=== PATIENT | male | born 1975 | race Caucasian/White ===

== ENCOUNTER 2024-05-13 23:44 | Emergency (ER) | payer BC, SELFPAY ==
[2024-05-13 23:54] VITALS: BP 115/81
[2024-05-14 00:33] LABS: COVID-19 Antigen Negative (Negative)
--- NOTE | 2024-05-14 02:02 | ED.GENMED ---
History of Present Illness
<SAURAV Rodarte - Last Filed: 05/14/24 06:28>
General
Chief Complaint: Throat Problem
Source: patient
Time Seen by Provider: 05/14/24 01:55
Nursing documentation reviewed up to this point in time: agreed with
History of Present Illness
History of Present Illness:
49 year old male c/o sore throat, rhinorrhea, and BL ear fullness since 05/10. Pt notes that he attended [facility]/07 which he believes is where he contracted his sx. He currently reports 8/10 throat pain that is worsened by lying supine and
with swallowing. He adds that the pain is worse at night. He has been taking Advil 400mg q 4-6 hr which provides moderate pain relief. Pt also endorses a sensation of pressure in his ears BL, as well as clear rhinorrhea. He denies fever, N/V, cough,
SOB, CP, difficulty speaking, and sinus pain. Rapid strep and COVID-19 swabs negative.
Past History
<SAURAV Rodarte - Last Filed: 05/14/24 06:28>
Past History
ED Past Medical History: None
ED Past Surgical History: None
Social History
Tobacco: Non-smoker
Alcohol: None
Drug: None
Living: with family
Review of Systems
<SAURAV Rodarte - Last Filed: 05/14/24 06:28>
Review of Systems
Allergies reviewed?: Yes
Constitutional: Reports no symptoms
EENT: Reports sore throat and runny nose
Respiratory: Reports no symptoms
Cardiac: Reports no symptoms
ABD/GI: Reports no symptoms
: Reports no symptoms
Musculoskeletal: Reports no symptoms
Skin: Reports no symptoms
Neurological: Reports no symptoms
Endocrine: Reports no symptoms
Hematologic/Lymphatic: Reports no symptoms
Psychiatric: Reports no symptoms
Phy Exam
<SAURAV Rodarte - Last Filed: 05/14/24 06:28>
General Physical Exam
General Presentation: well appearing
General age: appears stated age
General Skin: warm
General Habitus: normal
General Mental: alert
General Hydration: appears well hydrated
ENT Exam
ENT Exam: EOMI, TM's normal, pharyngeal erythema and swallowing well
Additional ENT: moderate post nasal drip
Cardiovascular Exam
Cardiovascular Exam: regular rate/rhythm and no edema
Pulmonary Exam
Pulmonary Exam: lungs clear, no respiratory distress, no crackles, no stridor and no wheezing
Skin Exam
Skin Exam: normal color and warm/dry
Course
<SAURAV Rodarte - Last Filed: 05/14/24 06:28>
Orders/Labs/Results
Orders:
Orders
05/13/24 23:57
COVID-19 Antigen Urgent
Source: Nasal Swab
Rapid Strep Group A Urgent
ML Source: Throat/Pharynx
Specimen Description:
Date Specimen was Collected: 05/13/24
Time Specimen was Collected: 23:57
Vital Signs
Initial and Last Documented VS:
Initial Vital Signs
Temp Pulse Resp BP Pulse Ox
98.3 F 83 14 115/81 97
05/13/24 23:54 05/13/24 23:54 05/13/24 23:54 05/13/24 23:54 05/13/24 23:54
Last Documented Vital Signs
Temp Pulse Resp BP Pulse Ox
98.3 F 83 14 115/81 97
05/13/24 23:54 05/13/24 23:54 05/13/24 23:54 05/13/24 23:54 05/13/24 23:54
<Alis Dunne DO - Last Filed: 05/14/24 02:28>
Orders/Labs/Results
Orders:
Orders
05/13/24 23:57
COVID-19 Antigen Urgent
Source: Nasal Swab
Rapid Strep Group A Urgent
ML Source: Throat/Pharynx
Specimen Description:
Date Specimen was Collected: 05/13/24
Time Specimen was Collected: 23:57
Vital Signs
Initial and Last Documented VS:
Initial Vital Signs
Temp Pulse Resp BP Pulse Ox
98.3 F 83 14 115/81 97
05/13/24 23:54 05/13/24 23:54 05/13/24 23:54 05/13/24 23:54 05/13/24 23:54
Last Documented Vital Signs
Temp Pulse Resp BP Pulse Ox
98.3 F 83 14 115/81 97
05/13/24 23:54 05/13/24 23:54 05/13/24 23:54 05/13/24 23:54 05/13/24 23:54
<SAURAV Rodarte - Last Filed: 05/14/24 06:28>
MDM/Problems Addressed
Differential Diagnosis Includes:
Viral URI, strep pharyngitis
MDM/Problems Addressed:
COVID-19 Antigen Nasal Swab
Rapid Strep Group A
Supportive measures
<SAURAV Rodarte - Last Filed: 05/14/24 06:28>
*Critical Care Note
Total Time (30-74mins, 75-104mins- exclusive of procedures): Not Applicable
ED Attending Note
<SAURAV Rodarte - Last Filed: 05/14/24 06:28>
-
Portions of this chart may have been created with voice recognition software.� Occasional wrong word or��sound alike� substitutions may have occurred due to the inherent limitations of voice recognition software.
<Alis Dunne, DO - Last Filed: 05/14/24 02:28>
ED Attending Note
Patient seen and examined by attending physician: Yes
I performed the substantive portion of visit, reviewed & personally made and approve the management plan that is documented in note by myself or CORINNA.: Yes
I performed a history and physical exam of patient and discussed management with resident, I reviewed resident's note and agree with documented findings and plan of care.: Yes
ED Attending Note:
This is a 49-year-old gentleman who has no significant past medical history save for hypertension presents with 3-day history of URI symptoms, clear rhinorrhea, sore throat, bilateral ear pressure and intermittent dry cough.
Symptoms are worse when lying down to bed. He has not had a fever nor chills. Eating and drinking normally. He has been taking ibuprofen 400 mg 3-4 times daily with moderate improvement in sore throat.
He did attend a [facility] week ago and believes this is where he caught his cold. His was concerned that he had strep thus presented to the ED. He admits that he has not had a sore throat nor strep throat since he was a child.
He does not smoke cigarettes. No history of chronic lung disease. He denies chest pain nor shortness of breath.
GENERAL: 49-year-old gentleman appears his stated age, bright and alert, pleasant, appears in no acute distress. Speech is clear. Handling secretions well. No cough appreciated during exam.
EYE: . anicteric
NECK: Supple, nontender, no meningismus, no significant adenopathy.
ENT: Posterior pharynx is mildly injected with moderate pearly postnasal drip, no edema nor ulcerations, oral mucosa is moist. TM clear b/l, nares have moderately boggy turbinates with scant clear to pearly rhinorrhea.
CARDIAC: Regular rate and rhythm. no murmur.
LUNGS: Clear breath sounds bilaterally, no acute respiratory distress, no wheezes/rales/rhonchi
ABDOMEN: Soft, nondistended, without focal tenderness
NEUROLOGICAL: Alert and oriented x3, no focal neuro deficits. Gait is valerio and steady.
SKIN: Warm and dry, normal color, skin intact. No rash.
MUSCULOSKELETAL: No C/C/E. peripheral pulses are full and equal b/l. No palpable tenderness.
PSYCH: Normal and appropriate interaction.
Rapid strep is negative. COVID 19 antigen is negative.
History and exam consistent with viral URI. Overall nontoxic in appearance. Afebrile.
No history of immunocompromise.
Recommend supportive measures, elevating head of bed at nighttime, adding humidifier or vaporizer, warm salt water gargles, staying well-hydrated on a daily basis.
Continue ibuprofen increasing to 800 mg every 6 hours as needed for pain.
Follow-up with PCP for recheck.
Return precautions discussed.
Discharge Plan
Departure
Patient Disposition: Home (Routine Discharge)
Date of Disposition: 05/14/24
Time of Disposition: 02:23
Patient with high blood pressure during this ER visit?: No
Condition: Good
Discharge Problem:
Upper respiratory infection, viral
Instructions: Upper respiratory infection in adults - Discharge instructions, Sore Throat - Adult
Prescriptions:
No Action
hydrocodone-acetaminophen 1 TABLET tablet
1 tab PO Q4HPRN PRN (Reason: severe pain) Qty: 10 0RF
metaxalone [Skelaxin] 800 MG tablet
800 mg PO TIDPRN PRN (Reason: muscle spasms) Qty: 12 0RF
Referrals:
NONE,* [Family Provider] - As needed
Interventions
Interventions:
*Risk Screen - Suicide Last Done: 05/14/24 02:25
*General Assessment Last Done: 05/14/24 02:25
*Neglect/Abuse Screening Last Done: 05/14/24 02:25
ED- Fall Risk Assessment Last Done: 05/14/24 02:25
*ED COVID-19 Vaccine History Last Done: 05/14/24 02:25
*Nursing Disposition Last Done: 05/14/24 02:29
ED-EENT Assessment Last Done: 05/14/24 02:18
ED- Pulmonary Assessment Last Done: 05/14/24 02:18
Discharge Date and Time
Discharge Date/Time: 05/14/24 02:30
Print Language: IRISH
== END 2024-05-14 02:30 | disposition home or self-care (01) ==
LOC: EMR 23:44
PROVIDERS: Emergency Medicine; EMERGENCY PHYSICIAN Emergency Medicine
DX: J06.9 Acute upper respiratory infection, unspecified (principal); Z11.52 Encounter for screening for COVID-19
CPT/HCPCS: 99282; 87070; 87811; 87880; 96372